=== PATIENT | male | born 1980 | race Caucasian/White ===

== ENCOUNTER 2019-11-20 12:29 | Outpatient (CLI) | payer BC ==
--- NOTE | 2019-11-20 13:17 | MRI ---
Exam: MRI cervical spine without contrast HISTORY: Increasing weakness with right arm. Previous cervical fusion. COMPARISON: 11/12/2016 FINDINGS: Metastasis be artifact due to fusion of the C3 and C4 level. Limited evaluation of the marrow signal at these levels. Remainder of the cervical spine demonstrate appropriate T1 marrow signal intensity. No fracture. There are type I and II Modic changes at the C6-C7 disc space Visualized brain parenchyma, cervicomedullary junction, cervical cord and the upper thoracic cord hav e normal size and signal intensity C2-C3: No significant central canal stenosis or significant neural foraminal narrowing C3-C4: Presumed disc prosthesis at osteophyte ridge. No significant central canal stenosis or signifi cant neural foraminal narrowing. C4-C5: Broad-based disc osteophyte complex abuts the thecal sac. Mild central canal stenosis. Moderat e to severe right foraminal narrowing due to uncovertebral and facet hypertrophy. Patent left neural foramen C5-C6: Broad-based discussed by complex abuts the thecal sac. Subarachnoid space is effaced. Mild to moderate central canal stenosis. Moderate to severe bilateral foraminal narrowing due to uncovertebral hypertrophy C6-C7: Broad-based discussed by complex abuts the thecal sac. Subarachnoid space is nearly effaced. M ild central canal stenosis. Moderate to severe bilateral foraminal narrowing due to uncovertebral hypertrophy C7-T1: No significant central canal stenosis or significant neural foraminal narrowing IMPRESSION: Multilevel degenerative changes of the cervical spine as detailed above Transcribed Date/Time: 11/20/2019 2:33 PM
== END 2019-11-20 12:30 | disposition home or self-care (01) ==
LOC: TBSIIMAG 12:29
PROVIDERS: ATTEND Psychiatry & Neurology Neurology
DX: M50.221 Other cervical disc displacement at C4-C5 level (principal); M47.812 Spondylosis without myelopathy or radiculopathy, cervical region
CPT/HCPCS: 72141

== ENCOUNTER 2021-10-12 08:42 | Outpatient (CLI) | payer BC | END 2021-10-12 08:43 | disposition home or self-care (01) | LOC: SCSMRI 08:42 | PROVIDERS: ATTEND Orthopaedic Surgery | DX: S46.011A Strain of muscle(s) and tendon(s) of the rotator cuff of right shoulder, initial encounter (principal); M75.101 Unspecified rotator cuff tear or rupture of right shoulder, not specified as traumatic ==

== ENCOUNTER 2021-10-30 15:46 | Outpatient (CLI) | payer BC ==
[2021-10-30 16:37] LABS: #Eosinphils 0.3 10x3/uL (0.0-0.5); #Neutrophils 3.8 10x3/uL (1.5-8.4); %Basophils 0.5 % (0.0-2.0); %Eosinophils 4.2 % (0.0-6.0); %Lymphocytes 35.7 % (18.0-47.0); %Monocytes 12.5 % (0.0-10.0); %Neutrophils 46.9 % (40.0-75.0); Hemoglobin 15.3 g/dL (13.5-17.5); Mean Corpuscular HGB CONC 34.2 g/dL (32.0-36.0); Mean Corpuscular Hemoglobin 31.2 pg (27.0-33.0); Mean Corpuscular Volume 91.2 fl (81.2-95.1); Mean Platelet Volume 9.5 fl (7.4-10.4); Platelet Count 275 10x3/uL (150-450); Red Blood Cell (RBC) Count 4.91 10x6/uL (4.32-5.72); White Blood Cell (WBC) Count 8.1 10x3/uL (3.5-10.5)
[2021-10-30 17:25] LABS: Anion Gap 14 mmol/L (10-20); BUN (Urea Nitrogen) 15 mg/dL (8.9-20.6); Calc. Creatinine Clearance 0 mL/min (70-130); Calcium 9.4 mg/dL (7.8-10.44); Carbon Dioxide 27 mmol/L (22-29); Chloride 101 mmol/L (98-107); Glucose 60 mg/dL (70-105); Potassium 4.1 mmol/L (3.5-5.1); Sodium 138 mmol/L (136-145)
[2021-10-31 00:03] LABS: SARS-CoV-2 PCR by NAA Not Detected (NotDetected)
== END 2021-10-30 15:47 | disposition home or self-care (01) ==
LOC: LABBT 15:46
PROVIDERS: ATTEND Orthopaedic Surgery
DX: Z01.818 Encounter for other preprocedural examination (principal); S46.211A Strain of muscle, fascia and tendon of other parts of biceps, right arm, initial encounter; S46.011A Strain of muscle(s) and tendon(s) of the rotator cuff of right shoulder, initial encounter; Z20.822 Contact with and (suspected) exposure to COVID-19
CPT/HCPCS: 80048; 85025; 93005; 93010; U0003; U0005

== ENCOUNTER 2021-11-02 05:34 | Day surgery (SDC) | payer BC ==
[2021-10-31 14:03] VITALS: BMI 31.1
[2021-11-02] MEDS ORDERED: Vancomycin (BATCH) 1.5 GRAM/300 ML BAG ONE (06:30)
[2021-11-02] MEDS ORDERED: fentaNYL Citrate/PF 100 MCG/2 ML SYRINGE ONE (06:37)
[2021-11-02] MEDS ORDERED: Midazolam HCl 2 mg/2 ml Vial ONE (07:04)
[2021-11-02] MEDS ORDERED: Fentanyl 100 MCG/2 ML VIAL ONE (07:04)
[2021-11-02] MEDS ORDERED: Levofloxacin 500 mg/D5W 100 ml Premix Bag ONE (07:15)
[2021-11-02] MEDS ORDERED: Lidocaine 2% Jelly 5 ML TUBE ONE (07:29)
[2021-11-02] MEDS ORDERED: HYDROcodone/Acetaminophen 5/325 mg Tablet PO PRN ×2 (08:15)
[2021-11-02] MEDS ORDERED: Ketorolac Tromethamine 30 MG/ML VIAL IVP PRN (08:15)
[2021-11-02] MEDS ORDERED: traMADol HCl 50 MG TAB PO PRN ×2 (08:15)
[2021-11-02] MEDS ORDERED: Ondansetron PF 4 MG/2 ML Vial IVP PRN (08:15)
[2021-11-02] MEDS ORDERED: Promethazine HCl 25 MG/ML VIAL IM PRN (08:15)
[2021-11-02] MEDS ORDERED: Zolpidem Tartrate 5 MG TAB PO PRN (08:15)
[2021-11-02] MEDS ORDERED: Ropivacaine 0.2% 550 ML 550 ML NERVE BLCK SCH (08:15)
[2021-11-02] MEDS ORDERED: Phenylephrine 10 MG/ML VIAL ONE (08:17)
== END 2021-11-02 11:05 | disposition home or self-care (01) ==
LOC: SDC 05:34
PROVIDERS: ATTEND Orthopaedic Surgery
PROC: 3E0T3BZ Introduction of Anesthetic Agent into Peripheral Nerves and Plexi, Percutaneous Approach (ICD-10-PCS; principal; 2021-11-02)
PROC: 0LQ10ZZ Repair Right Shoulder Tendon, Open Approach (ICD-10-PCS; principal; 2021-11-02)
PROC: 0LS30ZZ Reposition Right Upper Arm Tendon, Open Approach (ICD-10-PCS; principal; 2021-11-02)
DX: S46.011A Strain of muscle(s) and tendon(s) of the rotator cuff of right shoulder, initial encounter (principal); S46.211A Strain of muscle, fascia and tendon of other parts of biceps, right arm, initial encounter; M25.811 Other specified joint disorders, right shoulder; K21.9 Gastro-esophageal reflux disease without esophagitis; Z87.891 Personal history of nicotine dependence; Z88.1 Allergy status to other antibiotic agents; Z98.1 Arthrodesis status; X50.0XXA Overexertion from strenuous movement or load, initial encounter; Y93.B9 Activity, other involving muscle strengthening exercises
CPT/HCPCS: A4306; C1713; J1956; J2250; J2370; J2795; J3010; J3370